=== PATIENT | female | born 1970 | race American Indian/Alaskan Native ===

== ENCOUNTER 2022-10-25 05:59 | Emergency (ER) | payer OTHER, MEDICAID, SELFPAY ==
[2022-10-25 06:15] VITALS: BP 157/72; PULSE 74; RESP 18; TEMP 36.6; O2SAT 99; BMI 29.2
--- NOTE | 2022-10-25 07:38 | ED_ITS ---
HPI - Extremity Problem General Chief complaint: Extremity Problem,Nontraumatic Stated complaint: pain/left inner thigh/x14 days Time Seen by Provider: 10/25/22 07:38 Source: patient Mode of arrival: Ambulatory History of Present Illness HPI Narrative: 52F smoker with no chronic medical problems presents with the chief complaint of a painful lump in her left medial thigh for the past 2-3 weeks. She denies injury, trauma, fever, overlying redness, warmth or systemic complaints such as fever, chills nor nausea or vomiting. She denies any chest pain or shortness of breath. She denies any history of clot, recent travel, known cancer. She is been to the walk-in clinic twice for evaluation this scheduled for an outpatient ultrasound but due to ongoing symptoms and delay in ability to get this ultrasound she came to the emergency department instead. Her pain is worse when standing and seems to be at its most intense after a long day at work on her feet. Related Data Previous Rx's Medication Instructions Recorded lisinopril 20 1 tab PO DAILY #30 tabs 10/25/22 mg-hydrochlorothiazide 12.5 mg tablet Allergies Allergy/AdvReac Type Severity Reaction Status Date / Time No Known Drug Allergies Allergy Unverified 10/22/22 09:20 Review of Systems Review of Systems Narrative: GENERAL: Denies chills, fatigue, malaise, fever, sweats. HEENT: Denies sinus pain, ear pain, sore throat, difficulty swallowing, dizziness. RESPIRATORY: Denies dyspnea, cough, wheezing, hemoptysis, sputum. CARDIOVASCULAR: Denies chest pain, palpitations, orthopnea, edema, GASTROINTESTINAL: Denies nausea, vomiting, abdominal pain, diarrhea, constipat ion, melena. : Denies dysuria, frequency, incontinence, hematuria, urinary retention. MUSCULOSKELETAL: see HPI SKIN: see HPI NEUROLOGIC: Denies weakness, headache, numbness, change in speech, confusion, seizures, incoordination. PSYCHIATRIC: No concerning psychosocial issues. 12 point review of systems is negative except for those stated above Patient History Social History Smoking Status: Current every day smoker Smoking Status: Current every day smoker tobacco type: cigarettes Substance Use Type: does not use Exam Narrative Exam Narrative: GEN: AOx3 and in mild distress EYES: Pupils are equal, round, and reactive to light and accommodation. Extraoccular muscles are intact bilaterally. There is no subconjunctival hemorrhage or exudate. CHEST: Lungs are clear to auscultation bilaterally and free of wheezes, rales, or rhonchi. Heart rate is regular rhythm, there are no murmurs, clicks, rubs, or gallops. There is no chest wall tenderness. ABD: Abdomen is soft and nontender. There is no guarding or rebound. Bowel sounds are normal in all 4 quadrants. There is no mass or organomegaly. EXT: Painful lump left medial thigh proximally 3 x 2 cm, no overlying erythema, warmth or lymphangitis. SKIN: Warm, pink, and dry. No erythema or rash Initial Vital Signs Initial Vital Signs: Vital Signs Temperature 97.8 F 10/25/22 06:15 Pulse Rate 74 10/25/22 06:15 Respiratory Rate 18 10/25/22 06:15 Blood Pressure 157/72 H 10/25/22 06:15 Pulse Oximetry 99 10/25/22 06:15 Oxygen Delivery Method 10/25/22 06:15 Course Orders Ordered: ED Orders 10/25/22 07:47 US periph venous low extrem lt Stat Vital Signs Vital signs: Vital Signs - 8 hr 10/25/22 06:15 10/25/22 07:40 Temperature 97.8 F 97.7 F Pulse Rate 74 75 Respiratory Rate 18 Blood Pressure 157/72 H 131/71 Pulse Oximetry 99 97 Oxygen Delivery Method Room Air Room Air MDM - Extremity (Nontraumatic) Imaging Data US - DVT: Radiologist's Impression: [address] [address] Ultrasound Report Signed Patient: Rosemary Martinez MR#: [id number] : 1970 Acct:[id number] Age/Sex: 52 / F Date of Service: 10/25/22 Loc: ED Accession Number: [id number] ?? Procedure: US periph venous low extrem lt Ordering Provider: Nguyễn Silva D.O. PROCEDURE:? US PERIPH VENOUS LOW EXTREM LT ? INDICATIONS:? PAINFUL MEDIAL THIGH LUMP ? TECHNIQUE:? Real-time imaging, as well as color and pulse Doppler interrogation, were performed of the lower extremity deep veins from the inguinal ligament to the popliteal f pako.? ? COMPARISON:? None. ? FINDINGS:? The common femoral, femoral and popliteal veins are normally compressible, and free of intraluminal thrombus.? Color and pulse Doppler demonstrate normal phasi c intraluminal flow.? There is normal augmentation response to distal compression maneuver. ? ? 2.7 x 1.5 x 2.7 cm oval solid appearing nodule in left upper thigh soft tissue without internal vascularity. ? IMPRESSION:? 1. No evidence of DVT in visualized left lower extremity veins. 2. Possible enlarged lymph node in anterior left upper thigh as above. ? ? Dictated by: Angel Bee M.D. on 10/25/2022 at 8:52 ? ? Approved by: Angel Bee M.D. on 10/25/2022 at 8:53 ? MDM Narrative Medical decision making narrative: 52F smoker with no chronic medical problems presents with the chief complaint of a painful lump in her left medial thigh for the past 2-3 weeks Multiple etiologies for patient's symptoms considered including: DVT, infectious process, lymphadenopathy versus other Chart notes from prior visits consulted DVT considered, however no significant findings noted on ultrasound Ultrasound reviewed and suggests lymphadenopathy most likely cause Infection considered but no redness, warmth, lymphangitis Patient's symptoms improved over duration of stay with above-stated therapies. Findings and discharge diagnosis discussed with patient/family followed by verbalization of understanding Return precautions discussed with patient/family whom verbalize understanding. Discharge Plan Departure Patient Disposition: Home Clinical Impression: Lymph node enlargement Activity Restrictions/Additional Instructions: *You have been diagnosed with [left thigh discomfort, thankfully there is no evidence of DVT but ultrasound does suggest an inflamed lymph node.] *What to do: *Please continue to take your regular medications as directed. [x ] New medication prescriptions sent to your pharmacy: [[facility] ] [ ] New medication written as a paper prescription [ ] No new medications given *Please follow up with your primary care provider in 2-3 days, call for an appointment. Let them know you were seen in the Emergency Department and that we ask that you be seen in follow up. We will electronically transmit a record of today's note if your PCP is in our system *If you do not have a primary care provider please contact the [facility] Resource line at [phone]. They will ask some questions about your medical history and help get you set up with a doctor in the community. *Return to Emergency Department if you should have any new, worsening or concerning symptoms, such as [fever greater than 101 F, shaking chills, worsening pain, persistent vomiting or other bothersome symptoms] Prescriptions: New lisinopril-hydrochlorothiazide 20-12.5 mg tablet 1 tab PO DAILY Qty: 30 0RF Referrals: Miscellaneous,Doctor, MD [Primary Care Provider] - Visit Report Forms: Patient Portal/API
[2022-10-25 07:40] VITALS: BP 131/71; PULSE 75; TEMP 36.5; O2SAT 97
--- NOTE | 2022-10-25 07:47 | DI.US.S_ITS ---
PROCEDURE: US PERIPH VENOUS LOW EXTREM LT INDICATIONS: PAINFUL MEDIAL THIGH LUMP TECHNIQUE: Real-time imaging, as well as color and pulse Doppler interrogation, were performed of the lower extremity deep veins from the inguinal ligament to the popliteal fossa. COMPARISON: None. FINDINGS: The common femoral, femoral and popliteal veins are normally compressible, and free of intraluminal thrombus. Color and pulse Doppler demonstrate normal phasic intraluminal flow. There is normal augmentation response to distal compression maneuver. 2.7 x 1.5 x 2.7 cm oval solid appearing nodule in left upper thigh soft tissue without internal vascularity. IMPRESSION: 1. No evidence of DVT in visualized left lower extremity veins. 2. Possible enlarged lymph node in anterior left upper thigh as above. Dictated by: Angel Bee M.D. on 10/25/2022 at 8:52 Approved by: Angel Bee M.D. on 10/25/2022 at 8:53
== END 2022-10-25 09:39 | disposition home or self-care (01) ==
PROVIDERS: Emergency Provider Emergency Medicine
DX: R59.0 Localized enlarged lymph nodes (principal)
CPT/HCPCS: 93971; 99283

== ENCOUNTER → 2022-10-30 11:28 | Outpatient (CLI) | payer OTHER, MEDICAID, SELFPAY ==
[2022-10-30 12:59] LABS: Add Manual Diff / Slide Review NO; Basophils Absolute Auto 0 /uL (0-100); Basophils Percent Auto 0.7 % (0-2); Eosinophils Absolute Auto 300 /uL (0-450); Hematocrit 40.1 % (36-46); Hemoglobin 13.5 g/dL (12.0-16.0); Lymphocytes Absolute Auto 1300 /uL (1100-4500); Mean Corpuscular HGB Conc 33.5 % (30-36); Mean Corpuscular Hemoglobin 30.4 PG (26-34); Mean Corpuscular Volume 90.8 fL (80-100); Monocytes Absolute Auto 500 /uL (0-900); Monocytes Percent Auto 7.4 % (3-14); Neutrophils Absolute Auto 4400 /uL (1500-7000); Neutrophils Percent Auto 67.9 % (50-75); Platelet Count 367 X10^3/uL (150-400); Red Blood Cell Count 4.42 X10^6/uL (4.0-5.2); Red Cell Distribution Width 13.3 % (11.6-14.8); White Blood Cell Count 6.5 X10^3/uL (4.5-11.0)
[2022-10-30 13:13] LABS: Hemoglobin A1C% w Est Avg Glu 5.2 % (4.0-6.0)
[2022-10-30 13:15] LABS: Alanine Aminotransferase 16 IU/L (<35); Albumin 3.8 g/dL (3.5-5.0); Albumin Globulin Ratio 1.1 (1.0-2.8); Alkaline Phosphatase 66 U/L (38-126); Aspartate Aminotransferase 18 IU/L (14-36); BUN Creatinine Ratio 28.3 (6-22); Bilirubin Total 0.5 mg/dL (0.2-1.3); Blood Urea Nitrogen 15 mg/dL (7-17); Calcium 8.4 mg/dL (8.4-10.2); Carbon Dioxide 27 mmol/L (22-32); Chloride 103 mmol/L (98-107); Cholesterol 189 mg/dL (140-199); Estimated Glomerular Filt Rate > 60 mL/min (>60); Globulin 3.4 g/dL (1.7-4.1); Glucose 84 mg/dL (70-100); HDL Cholesterol 62 mg/dL (40-60); HEMOLYSIS < 15 (0-50); LDL Cholesterol Calculated 87 mg/dL (<100); Potassium 4.3 mmol/L (3.4-5.1); Sodium 137 mmol/L (137-145); Total Protein 7.2 g/dL (6.3-8.2); Triglycerides 202 mg/dL (35-150)
== END ==
PROVIDERS: PCP Family Medicine; Referring Provider Family Medicine; Visit Provider Family Medicine
DX: I10 Essential (primary) hypertension (principal); R59.9 Enlarged lymph nodes, unspecified
CPT/HCPCS: 36415; 80053; 80061; 83036; 85025

== ENCOUNTER 2022-11-14 16:20 | Emergency (ER) | payer OTHER, MEDICAID, SELFPAY ==
[2022-11-14 16:53] VITALS: BP 148/80; PULSE 78; RESP 18; TEMP 36.1; O2SAT 98
--- NOTE | 2022-11-14 19:06 | ED_ITS ---
HPI - Wound/Laceration General Chief Complaint: Wound/Laceration Stated Complaint: Leg pain, Condition worsening Time Seen by Provider: 11/14/22 19:02 Source: patient Mode of arrival: Ambulatory Limitations: no limitations History of Present Illness HPI narrative: Patient is a 52-year-old female who is here for evaluation of worsening of a lump in her left upper groin. She was seen here in the past for this. She had an ultrasound. Was told that was a lymph node. Things have worsened over the past several days/weeks. She was started on antibiotics from an outside facility. Has only been on it for a day. She states the redness in the discomfort has just continued to worsen which is what brought her to the emergency department today. Related Data Previous Rx's Medication Instructions Recorded lisinopril 20 1 tab PO DAILY #90 tabs 10/30/22 mg-hydrochlorothiazide 12.5 mg tablet Allergies Allergy/AdvReac Type Severity Reaction Status Date / Time No Known Drug Allergies Allergy Unverified 10/22/22 09:20 Review of Systems Constitutional Constitutional: Reports system reviewed and no additional complaints, except as documented Musculoskeletal Musculoskeletal: Reports system reviewed and no additional complaints, except as documented Integumentary/Breasts Skin/Breast: Reports system reviewed and no additional complaints, except as documented Hematologic/Lymphatic On Anticoagulants: No Allergic/Immunologic Allergic/Immunologic: Reports system reviewed and no additional complaints, except as documented Patient History Medical History Benign essential hypertension Social History Smoking Status: Current every day smoker Smoking Status: Current every day smoker tobacco type: cigarettes Substance Use Type: does not use Exam Initial Vital Signs Initial Vital Signs: Vital Signs Temperature 97 F L 11/14/22 16:53 Pulse Rate 78 11/14/22 16:53 Respiratory Rate 18 11/14/22 16:53 Blood Pressure 148/80 H 11/14/22 16:53 Pulse Oximetry 98 11/14/22 16:53 Oxygen Delivery Method 11/14/22 16:53 [facility] Head: normal to inspection and normocephalic Skin Other: Patient with a area of erythema in the left upper inner thigh with a central area that is approximately 3 cm x 2 cm of induration and swelling. There is no drainage. Extrem Other: Her left hip and left near unremarkable. Procedures Abscess I/D I&D #1: Site: lower extremity Side (if applicable): left Local Anesthetic: lidocaine 2% and with epi Amount of anesthesia used (mL): 3 Technique: incised with #11 blade Irrigation: No Packing used?: none Course Orders Ordered: ED Orders 11/14/22 19:06 US extremity nonvasc lower lt Stat Vital Signs Vital signs: Vital Signs - 8 hr 11/14/22 20:37 Temperature 98 F Pulse Rate 78 Respiratory Rate 16 Blood Pressure 154/85 H Pulse Oximetry 98 Oxygen Delivery Method Room Air MDM - Wound/Laceration Medical Records Attestation: I reviewed the patient's medical records. Lab Data Attestation: I reviewed the patient's lab results. Imaging Data soft tissue US: Radiologist's Impression: [address] [address] Ultrasound Report Signed Patient: Rosemary Martinez MR#: [id number] : 1970 Acct:[id number] Age/Sex: 52 / F Date of Service: 11/14/22 Loc: ED Accession Number: [id number] ?? Procedure: US extremity nonvasc lower lt Ordering Provider: Dex Colbert D.O. PROCEDURE:? US EXTREMITY NONVASC LOWER LT ? INDICATIONS:? soft tissue mass L upper leg eval for abscess ? TECHNIQUE:? Real-time scanning was performed of the left superior medial thigh , with image documentation.? ? COMPARISON:? None. ? FINDINGS:? There is a 3.4 x 3.1 x 4.1 centimeter irregular shaped complex fluid collection consistent with an abscess.? This measured 2.7 x 1.5 x 2.5 cm on 10/25/2022 ? IMPRESSION:? 3.4 x 3.1 x 4.1 centimeter irregularly-shaped complex fluid collection most consistent with an abscess. ? ? Dictated by: Stevie Garcia M.D. on 11/14/2022 at 20:31 ? ? Approved by: Stevie Garcia M.D. on 11/14/2022 at 20:32?? [facility] Narrative Medical decision making narrative: Ultrasound his now consistent with an abscess and that is consistent with her physical exam. I did drain a significant amount of purulent material from the area. No packing was used. Given the surrounding erythema will have the patient continue to take her antibiotics. She was given care instructions and return precautions. She expressed understanding and agreement. Discharge Plan Departure Patient Disposition: Home Clinical Impression: Abscess Instructions: DI for Incision and Drainage of a Skin Abscess Activity Restrictions/Additional Instructions: I do recommend that you continue the antibiotics that you are already prescribed. Expect some oozing from the area and you may need to change the bandage frequently over the next couple hours. You can shower like normal. Keep your scheduled follow-up medical appointments. Return to the emergency department for any new symptoms. Prescriptions: No Action lisinopril-hydrochlorothiazide 20-12.5 mg tablet 1 tab PO DAILY Qty: 90 3RF Referrals: Cornelia Ryan DO [Primary Care Provider] - Stand Alone Forms: Patient Portal/API
--- NOTE | 2022-11-14 19:06 | DI.US.S_ITS ---
PROCEDURE: US EXTREMITY NONVASC LOWER LT INDICATIONS: soft tissue mass L upper leg eval for abscess TECHNIQUE: Real-time scanning was performed of the left superior medial thigh , with image documentation. COMPARISON: None. FINDINGS: There is a 3.4 x 3.1 x 4.1 centimeter irregular shaped complex fluid collection consistent with an abscess. This measured 2.7 x 1.5 x 2.5 cm on 10/25/2022 IMPRESSION: 3.4 x 3.1 x 4.1 centimeter irregularly-shaped complex fluid collection most consistent with an abscess. Dictated by: Stevie Garcia M.D. on 11/14/2022 at 20:31 Approved by: Stevie Garcia M.D. on 11/14/2022 at 20:32
[2022-11-14 20:37] VITALS: BP 154/85; PULSE 78; RESP 16; TEMP 36.6; O2SAT 98
== END 2022-11-14 20:35 | disposition home or self-care (01) ==
PROVIDERS: Emergency Provider Emergency Medicine; PCP Family Medicine
DX: L02.416 Cutaneous abscess of left lower limb (principal)
CPT/HCPCS: 10060; 76882; 99283